=== PATIENT | male | born 1980 | race Caucasian/White ===

== ENCOUNTER 2017-07-30 20:27 | Emergency (ER) | payer SELFPAY ==
[2017-07-30] MEDS ORDERED: Acetaminophen 325 MG Tab PO ONE (21:07)
--- NOTE | 2017-07-30 21:07 | EDM.PDOC ---
ED HPI GENERAL MEDICAL PROBLEM - General Chief Complaint: General Stated Complaint: CHEST CONGESTION Time Seen by Provider: 07/30/17 20:36 Source of Information: Reports: Patient History Limitations: Reports: No Limitations - History of Present Illness INITIAL COMMENTS - FREE TEXT/NARRATIVE: Patient presents with congestion of sinuses and chest, cough (substernal pain with coughing), fever that started yesterday afternoon. He didn't have a flu shot and recalls being near his boss who has influenza. Treatments [employer]: Reports: NSAIDS, Other Medication(s) Epigastric Pain Score (Numeric/FACES): 10 - Related Data Allergies Allergy/AdvReac Type Severity Reaction Status Date / Time No Known Drug Allergies Allergy Cannot Verified 07/30/17 20:49 Remember Home Meds: Home Meds . [No Known Home Meds] 07/30/17 [History] ED ROS GENERAL - Review of Systems Review Of Systems: See Below Constitutional: Reports: Fever, Chills, Malaise. Denies: Diaphoresis HEENT: Denies: Ear Pain, Throat Pain, Vision Change Respiratory: Reports: Cough. Denies: Shortness of Breath, Sputum Cardiovascular: Denies: Chest Pain (except with cough), Lightheadedness, Syncope Endocrine: Reports: No Symptoms GI/Abdominal: Denies: Abdominal Pain, Constipation, Diarrhea, Vomiting : Denies: Dysuria, Flank Pain, Frequency Musculoskeletal: Reports: No Symptoms Skin: Denies: Cyanosis, Jaundice, Mottled, Pallor, Diaphoresis Neurological: Denies: Confusion, Dizziness, Seizure, Syncope, Trouble Speaking, Difficulty Walking Psychiatric: Denies: Agitation, Anxiety, Confusion ED EXAM, GENERAL - Physical Exam Exam: See Below Exam Limited By: No Limitations General Appearance: Alert, WD/WN, No Apparent Distress Eye Exam: Bilateral Eye: EOMI, Normal Inspection, PERRL Ears: Normal External Exam, Hearing Grossly Normal Nose: Normal Inspection, No Blood Throat/Mouth: Normal Inspection, Normal Lips, Normal Voice, No Airway Compromise Head: Atraumatic, Normocephalic, Sinus Tenderness (frontal and maxillary) Neck: Normal Inspection, Supple, Full Range of Motion Respiratory/Chest: No Respiratory Distress, Lungs Clear, Normal Breath Sounds, No Accessory Muscle Use Cardiovascular: Regular Rate, Rhythm, No Murmur GI/Abdominal: Normal Bowel Sounds, Soft, Non-Tender, No Organomegaly, No Distention Back Exam: No: CVA Tenderness (L), CVA Tenderness (R) Extremities: Normal Inspection, Normal Range of Motion Neurological: Alert, Oriented, Normal Cognition, No Motor/Sensory Deficits Psychiatric: Normal Affect, Normal Mood Skin Exam: Warm, Dry, Intact, Normal Color, No Rash Course - Vital Signs Last Recorded V/S: Last Vital Signs Temp 101.0 F H 07/30/17 20:42 Pulse 114 H 07/30/17 20:42 Resp 18 07/30/17 20:42 BP 142/80 H 07/30/17 20:42 Pulse Ox 96 07/30/17 20:42 - Orders/Labs/Meds Orders: Active Orders 24 hr Category Date Time Status CBC WITH AUTO DIFF [HEME] Stat Lab 07/30/17 21:01 Ordered INFLUENZA A+B AG SCREEN [RM] Stat Lab 07/30/17 21:01 Ordered - Re-Assessments/Exams Free Text/Narrative Re-Assessment/Exam: 07/30/17 21:55 Influenza A/B negative. Discussed findings and treatment plan with patient. I feel this is most likely viral as symptoms all started yesterday. Discussed that bacterial infections can develop following a viral infection so should follow up if worsening or persisting. Patient discharged in stable condition. Departure - Departure Time of Disposition: 21:52 Disposition: Home, Self-Care 01 Condition: Good Clinical Impression: URI (upper respiratory infection) Qualifiers: URI type: unspecified URI Qualified Code(s): J06.9 - Acute upper respiratory infection, unspecified - Discharge Information Instructions: Viral Respiratory Infection, [id number] Referrals: PCP,None [Primary Care Provider] - Additional Instructions: 1. Drink 8 cups of water daily. 2. Try to get extra rest for a couple days. 3. Use Ibuprofen and/or Tylenol as needed for fever and aches. 4. You can use Mucinex to help loosen the secretions in the sinuses and lungs. 5. Follow up with your PCP if not improving in a week or [facility] if worsening. 6. Return to ER as needed. - My Orders Last 24 Hours: My Active Orders 07/30/17 21:01 CBC WITH AUTO DIFF [HEME] Stat INFLUENZA A+B AG SCREEN [RM] Stat - Assessment/Plan Last 24 Hours: My Active Orders 04/05/18 21:01 CBC WITH AUTO DIFF [HEME] Stat INFLUENZA A+B AG SCREEN [RM] Stat
== END 2017-07-30 22:00 | disposition home or self-care (01) ==
LOC: KA.ED 20:27
DX: J06.9 Acute upper respiratory infection, unspecified (principal)
CPT/HCPCS: 36415; 85025; 87804; 99283; A9270-GY